=== PATIENT | female | born 1950 | race Caucasian/White ===

== ENCOUNTER 2019-05-31 09:44 | Emergency (ER) | payer OTHER ==
[~2019-05-31] VITALS: Ht 157.5 cm; Wt 65.8 kg
[2019-05-31] MEDS ORDERED: NAPROXEN500 MG PO (12:46)
== END 2019-05-31 12:58 | disposition home or self-care (01) ==
LOC: ER 09:44
DX: S51.022A Laceration with foreign body of left elbow, initial encounter (principal); S00.83XA Contusion of other part of head, initial encounter; S40.012A Contusion of left shoulder, initial encounter; W26.8XXA Contact with other sharp object(s), not elsewhere classified, initial encounter; Y93.89 Activity, other specified; Y92.018 Other place in single-family (private) house as the place of occurrence of the external cause; Y99.8 Other external cause status

== ENCOUNTER 2020-01-16 09:38 | Emergency (ER) | payer OTHER ==
[~2020-01-16] VITALS: Ht 154.9 cm; Wt 65.8 kg
[~2020-01-16 09:38] MED LIST: NAPROXEN500 MG PO
[2020-01-16] MEDS ORDERED: ASPIR 8181 MG (09:46)
[2020-01-16] MEDS ORDERED: TOPROL XL25 M1 (09:47)
[2020-01-16] MEDS ORDERED: ATORVASTATIN CA10 MG (09:47)
[2020-01-16] MEDS ORDERED: INTESTINEX680 M2 PO (15:10)
[2020-01-16] MEDS ORDERED: PEPCID AC20 MG PO (15:10)
[2020-01-16] MEDS ORDERED: KETO10TA2 PO (15:10)
[2020-01-16] MEDS ORDERED: AMOX-CLAV 500-1 EACH PO (15:10)
== END 2020-01-16 15:22 | disposition home or self-care (01) ==
LOC: ER 09:38
DX: K11.21 Acute sialoadenitis (principal); K11.5 Sialolithiasis; M54.2 Cervicalgia

== ENCOUNTER → 2020-05-12 | Emergency (ER) | payer OTHER ==
[~2020-05-12] VITALS: Ht 157.5 cm; Wt 65.8 kg
[~2020-05-12] MED LIST changes: +AMOX-CLAV 500-1 EACH PO; +AMOX-CLAV 875-1 EACH PO; +ASPIR 8181 MG; +ATORVASTATIN CA10 MG; +INTESTINEX680 M2 PO; +KETO10TA2 PO; +MEDROLPACK PO; +PEPCID AC20 MG PO; +TOPROL XL25 M1
== END | disposition home or self-care (01) ==
LOC: ER 10:39
DX: K11.21 Acute sialoadenitis (principal)

== ENCOUNTER 2024-12-21 08:10 | Outpatient (CLI) | payer OTHER | END 2024-12-21 08:13 | disposition home or self-care (01) | LOC: SONOGRAMA 08:10 | PROVIDERS: ATTEND Pathology Anatomic Pathology & Clinical Pathology | DX: D34 Benign neoplasm of thyroid gland (principal); E07.89 Other specified disorders of thyroid; E04.1 Nontoxic single thyroid nodule ==